=== PATIENT | male | born 1950 | race Caucasian/White ===

== ENCOUNTER 2024-06-30 07:10 | Outpatient (CLI) | payer MEDICARE, OTHER, SELFPAY ==
--- NOTE | 2024-06-30 08:28 | P.ANES_ITS ---
Anesthesia Charges Start Date/Time Anesthesia Start Date: 06/30/24 Anesthesia Start Time: 07:53 Stop Date/Time Anesthesia Stop Date: 06/30/24 Anesthesia Stop Time: 08:28 Summary Extremes of Age - Over 70 or under 1: MDA Coding CPT Codes CPT Codes: ANES LWR INTST SCR COLSC - 36738 ([id number]) P2 - PATIENT W/MILD SYST DISEASE, QK - LINOTYPE OPERATOR 2-4 CNCRNT ANES PROC, QX - PHERESIS SPECIALIST SVC W/ MD MED DIRECTION Additional Codes: Summary - Extremes of Age - Over 70 or under 1: MDA ([id number])
--- NOTE | 2024-06-30 08:28 | W.ANESCHARGE ---
Anesthesia Charges Start Date/Time Anesthesia Start Date: 06/30/24 Anesthesia Start Time: 07:53 Stop Date/Time Anesthesia Stop Date: 06/30/24 Anesthesia Stop Time: 08:28 Summary Extremes of Age - Over 70 or under 1: MDA Coding CPT Codes CPT Codes: ANES LWR INTST SCR COLSC - 25251 ([id number]) P2 - PATIENT W/MILD SYST DISEASE, QK - SIGN BOARD ERECTOR 2-4 CNCRNT ANES PROC, QX - VENDER SVC W/ MD MED DIRECTION Additional Codes: Summary - Extremes of Age - Over 70 or under 1: MDA ([id number])
--- NOTE | 2024-06-30 08:30 | P.ANES_ITS ---
Anesthesia Charges Start Date/Time Anesthesia Start Date: 06/30/24 Anesthesia Start Time: 07:53 Stop Date/Time Anesthesia Stop Date: 06/30/24 Anesthesia Stop Time: 08:28 Summary Extremes of Age - Over 70 or under 1: LANDSCAPE ARCHITECT AND PLANNER Coding CPT Codes CPT Codes: AMANDA LWR INTST SCR COLSC - 43732 ([id number]) P2 - PATIENT W/MILD SYST DISEASE, QX - LANDSCAPE ARCHITECT AND PLANNER SVC W/ MD MED DIRECTION, QK - COLLECTION SPECIALIST 2-4 CNCRNT ANES PROC Additional Codes: Summary - Extremes of Age - Over 70 or under 1: LANDSCAPE ARCHITECT AND PLANNER ([id number])
--- NOTE | 2024-06-30 08:30 | W.ANESCHARGE ---
Anesthesia Charges Start Date/Time Anesthesia Start Date: 06/30/24 Anesthesia Start Time: 07:53 Stop Date/Time Anesthesia Stop Date: 06/30/24 Anesthesia Stop Time: 08:28 Summary Extremes of Age - Over 70 or under 1: LAYBOY TENDER Coding CPT Codes CPT Codes: AMANDA LWR INTST SCR COLSC - [id number] ([id number]) P2 - PATIENT W/MILD SYST DISEASE, QX - LAYBOY TENDER SVC W/ MD MED DIRECTION, QK - SOCIAL MEDIA COMMUNITY MANAGER 2-4 CNCRNT ANES PROC Additional Codes: Summary - Extremes of Age - Over 70 or under 1: LAYBOY TENDER ([id number])
== END 2024-06-30 07:11 | disposition home or self-care (01) ==
PROVIDERS: PCP Family Medicine; Visit Provider Internal Medicine Gastroenterology
DX: Z12.11 Encounter for screening for malignant neoplasm of colon (principal); K62.89 Other specified diseases of anus and rectum; Z85.048 Personal history of other malignant neoplasm of rectum, rectosigmoid junction, and anus
CPT/HCPCS: 00812; 45378; 99100; J2371; J2704